=== PATIENT | female | born 1990 | race Caucasian/White ===

== ENCOUNTER 2021-08-20 12:10 | Outpatient (CLI) | payer BC ==
[2021-08-20 12:39] VITALS: BP 128/78; PULSE 91; RESP 18; TEMP 96.9
--- NOTE | 2021-08-20 17:56 | P.MSEPDOC ---
Presenting Problems - Arrival Data Date of Arrival on Unit: 08/20/21 Time of Arrival on Unit: 12:10 Mode of Transport: Ambulatory - Complaint OB-Reason for Admission/Chief Complaint: Decreased Movement Medical History - Information : 2 Para: 1 Term: 1 : 0 Abortions: Spontaneous or Elective: 0 Number of Living Children: 1 - Gestational Age Gestational Age by SUSIE (wks/days): 35 Weeks and 2 Days Review of Systems - Review of Systems Constitutional: No problems Breast: No problems ENT: No problems Cardiovascular: No problems Respiratory: No problems Gastrointestinal: No problems Genitourinary: No problems Musculoskeletal: No problems Neurological: No problems Skin: No problems Vital Signs - Temperature Temperature: 96.9 F Temperature Source: Temporal Artery Scan - Pulse Right Pulse Rate: 91 Pulse Assessment Method: Pulse Oximetry - Respirations Respiratory Rate: 18 Oxygen Delivery Method: Room Air O2 Sat by Pulse Oximetry: 99 - Blood Pressure Right Arm Blood Pressure: 128/78 Blood Pressure Mean: 94 Blood Pressure Source: Automatic Cuff Medical Screen Scoring - Cervical Exam Dilation (cm): 0 Membranes: Intact - Uterine Contractions Frequency From (mins): 1 Frequency To (mins): 2 Intensity: Mild Resting: Soft to palpation - Assessment - Baby A Baseline FHR: 135 Heart Rate - NICHD Category: Category I (Normal) NST: Reactive Physician Notification - Physician Notified Physician Notified Date: 08/20/21 Physician Notified Time: 12:10 Physician: Mahi Barrientos New Order Received: Yes - Notification Comment Comment: RN reported to Dr. Barrientos maternal/ status, FHTs, UC pattern, c/o DFM, feeling hiccups. Pt has marked that she has felt the baby move 3 times in the [id number]. Audible movement noted as well. Pt states that she has felt 1 of the cxns. FHTs reactive at this time. RN to finish NST, and pt may be dc'd with follow up with her physician. Dr. Barrientos would like RN to perform cervical exam d/t cxn pattern. If pt is not. dilated, she may still DC home. Maternal Triage Index - Maternal Triage Index Presenting for scheduled procedure w/no complaint: No - Stat/Priority 1 Stat Priority 1: No - Urgent/Priority 2 Urgent Priority 2: Yes Provider Notified: Mahi Barrientos Provider Notified Time: 12:10 Criteria Met for Priority 2: Pt here with c/o DFM today. Disposition - Disposition OB Disposition: Discharge to home Discharge Date: 08/20/21 Discharge Time: 12:30 I agree with the RN Medical Screening Exam: Yes Case reviewed; plan agreed upon as documented in EMR&OBIX.: Yes Diagnosis: DECREASED MOVEMENTS, THIRD TRIMESTER, FETUS 1
== END 2021-08-20 12:30 | disposition home or self-care (01) ==
LOC: FBPOP 12:10
PROVIDERS: ATTEND Obstetrics & Gynecology
DX: O36.8131 Decreased fetal movements, third trimester, fetus 1 (principal); Z3A.35 35 weeks gestation of pregnancy
CPT/HCPCS: 59025; 99213